=== PATIENT | female | born 1965 | race Caucasian/White ===

== ENCOUNTER 2021-02-21 10:14 | Emergency (ER) | payer MEDICARE, BC ==
[~2021-02-21] VITALS: Ht 177.8 cm; Wt 59.1 kg
[2021-02-21 10:43] VITALS: TEMP 97.9
[2021-02-21 11:16] LABS: COLLECTION METHOD CLEAN CATCH
[2021-02-21 11:21] LABS: BASO # 0.1 K/mm3 (0.0-0.2); EOS # 0.1 K/mm3 (0.0-0.7); EOS % 1.1 % (0.0-4.0); GRAN # 4.8 K/mm3 (1.4-6.5); GRAN % 57.8 % (42.2-75.2); HEMOGLOBIN 15.9 g/dl (12.5-16.0); LYMPH # 2.8 K/mm3 (1.2-3.4); LYMPH % 33.9 % (20.0-51.0); MEAN CELL VOLUME 85 fl (80.0-100.0); MEAN CORPUSCULAR HEMOGLOBIN 29 pg (27-31); MEAN CORPUSCULAR HGB CONC 34 g/dl (33.0-37.0); MEAN PLATELET VOLUME 9.8 fl (7.4-10.4); MONO # 0.5 K/mm3 (0.1-0.6); PLATELET COUNT 318 K/mm3 (130-400); RED BLOOD COUNT 5.51 M/mm3 (4.10-5.30); REDCELL DISTRIBUTION WIDTH-CV 12.8 % (11.5-14.5)
[2021-02-21 11:24] LABS: MUCOUS Present (NOT PRESENT); PH 5 (5-8); SQUAMOUS EPITHELIAL 0-2 /hpf (0-10); URINE APPEARANCE Clear (CLEAR/HAZY); URINE BACTERIA None Seen /hpf (NONE SEEN); URINE BILIRUBIN Negative (NEGATIVE); URINE BLOOD 1+ (NEGATIVE); URINE COLOR Yellow (YELLOW); URINE GLUCOSE Negative (NEGATIVE); URINE KETONE Negative (NEGATIVE); URINE LEUKOCYTE ESTERASE Negative (NEGATIVE); URINE NITRATE Negative (NEGATIVE); URINE PROTEIN(semi-quant) Negative (NEGATIVE); URINE RBC 0-2 /hpf (0-2); URINE UROBILINOGEN Negative (NEGATIVE)
[2021-02-21 11:39] LABS: ALANINE AMINOTRANSFERASE 12 U/L (0-55); ALKALINE PHOSPHATASE 69 U/L (40-150); ANION GAP 11 mmol/L (7-16); AST,SGOT 18 U/L (5-34); BILIRUBIN,TOTAL 0.4 mg/dL (0.2-1.2); BLOOD UREA NITROGEN 9 mg/dL (10-20); CARBON DIOXIDE 22 mmol/L (22-29); CHLORIDE 107 mmol/L (98-107); CREATININE, serum 0.78 mg/dL (0.57-1.11); GLUCOSE 91 mg/dL (70-99); LIPASE 59 U/L (8-78); POTASSIUM 4.1 mmol/L (3.5-4.5); SODIUM 140 mmol/L (136-145); TOTAL PROTEIN 6.4 gm/dL (6.2-8.1)
[2021-02-21 11:45] LABS: TROPONIN-I < 0.010 ng/mL (0.00-0.033)
[2021-02-21] MEDS ORDERED: NORCO 325 MG-51 TAB PO (12:03)
[2021-02-21 12:10] VITALS: BP 123/73; PULSE 65
== END 2021-02-21 12:13 | disposition home or self-care (01) ==
LOC: COL.ER 10:14
PROVIDERS: Emergency Medicine
DX: R10.11 Right upper quadrant pain (principal); G89.29 Other chronic pain
CPT/HCPCS: J3010; J7030

== ENCOUNTER 2021-02-25 16:56 | Emergency (ER) | payer MEDICARE, BC ==
[~2021-02-25] VITALS: Ht 177.8 cm; Wt 59.1 kg
[~2021-02-25 16:56] MED LIST: NORCO 325 MG-51 TAB PO
[2021-02-25 17:35] VITALS: TEMP 98
[2021-02-25 19:35] LABS: BASO # 0.1 K/mm3 (0.0-0.2); BASO % 0.6 % (0.0-2.0); EOS # 0.1 K/mm3 (0.0-0.7); EOS % 0.9 % (0.0-4.0); GRAN # 7.9 K/mm3 (1.4-6.5); GRAN % 66.4 % (42.2-75.2); HEMATOCRIT 44.6 % (37.0-47.0); HEMOGLOBIN 15.1 g/dl (12.5-16.0); LYMPH # 3.1 K/mm3 (1.2-3.4); LYMPH % 26.3 % (20.0-51.0); MEAN CELL VOLUME 85 fl (80.0-100.0); MEAN CORPUSCULAR HEMOGLOBIN 29 pg (27-31); MEAN CORPUSCULAR HGB CONC 34 g/dl (33.0-37.0); MEAN PLATELET VOLUME 9.6 fl (7.4-10.4); MONO # 0.7 K/mm3 (0.1-0.6); MONO % 5.5 % (1.7-9.3); PLATELET COUNT 315 K/mm3 (130-400); RED BLOOD COUNT 5.24 M/mm3 (4.10-5.30); REDCELL DISTRIBUTION WIDTH-CV 12.6 % (11.5-14.5)
[2021-02-25 20:06] LABS: BILIRUBIN,TOTAL 0.6 mg/dL (0.2-1.2); CALCIUM 9.4 mg/dL (8.4-10.2); POTASSIUM 3.9 mmol/L (3.5-4.5); TOTAL PROTEIN 6.7 gm/dL (6.2-8.1)
[2021-02-25 20:30] LABS: CREATININE, serum 0.77 mg/dL (0.57-1.11)
[2021-02-25 20:46] VITALS: BP 124/78; PULSE 76
== END 2021-02-25 20:46 | disposition home or self-care (01) ==
LOC: COL.ER 16:56
PROVIDERS: Physician Assistant
DX: K80.50 Calculus of bile duct without cholangitis or cholecystitis without obstruction (principal); F17.200 Nicotine dependence, unspecified, uncomplicated

== ENCOUNTER 2021-03-05 07:34 | Day surgery (SDC) | payer MEDICARE, BC ==
[~2021-03-05] VITALS: Ht 177.8 cm; Wt 59.3 kg
[2021-03-05] MEDS ORDERED: DULCOLAX STOOL100 MG PO (07:57)
[2021-03-05 09:41] VITALS: BP 110/67; PULSE 72; TEMP 97.7
[2021-03-05] MEDS ORDERED: MOTRIN 600600 MG/TAB PO (11:21)
[2021-03-05] MEDS ORDERED: NORCO 325 MG-51 TAB PO (11:22)
[2021-03-05] MEDS ORDERED: ZOFRAN ODT4 MG PO (11:22)
[2021-03-05 11:50] VITALS: BP 125/76; PULSE 77; TEMP 97.6
--- NOTE | 2021-03-05 11:50 | NUR ---
Patient arrived back into [facility] from PACU. Report recieved from KEY Ybarra. at bedside. Patient reporting just wanting to rest.
[2021-03-05 12:05] VITALS: BP 131/75; PULSE 82
[2021-03-05 12:20] VITALS: BP 117/73; PULSE 80
--- NOTE | 2021-03-05 12:20 | NUR ---
Patient alert and awake. Requesting water and nani crackers. Stating she is having some pain to incisional areas. PRN pain medications given per MAR for pain. Patient at bedside. Patient reports pain and no nausea at this time.
[2021-03-05 12:35] VITALS: BP 119/71; PULSE 82
--- NOTE | 2021-03-05 12:40 | NUR ---
Patient tolerated food and drink well. States pain is tolerable. Denies nausea. At this time patient meets discharge criteria. Went through discharge instructions with patient and . Questions answered. Patient and verbalized understanding to eduction. Patient up to use restroom with assistance of . Instructed to use call light in room or restroom if needed.
--- NOTE | 2021-03-05 12:50 | NUR ---
Patient voided successful, got dressed with assistance of . Patient was then escorted to patient entrance via wheelchair when she got into personal vehicle and left in the care of her , Eleuterio.
== END 2021-03-05 12:50 | disposition home or self-care (01) ==
LOC: SDCO 07:34
DX: K81.1 Chronic cholecystitis (principal); F17.210 Nicotine dependence, cigarettes, uncomplicated
CPT/HCPCS: J0690; J1100; J1885; J2250; J2405; J2704; J3010; J7120; Q9967

== ENCOUNTER → 2021-11-06 | Outpatient (CLI) | payer MEDICARE, BC ==
[~2021-11-06] MED LIST changes: +DULCOLAX STOOL100 MG PO; +MOTRIN 600600 MG/TAB PO; +ZOFRAN ODT4 MG PO
== END ==
LOC: COL.RAD 07:08
DX: R22.9 Localized swelling, mass and lump, unspecified (principal)

== ENCOUNTER → 2022-04-18 | Outpatient (CLI) | payer MEDICARE, BC | LOC: COL.RAD 09:38 | DX: R22.2 Localized swelling, mass and lump, trunk (principal) ==

== ENCOUNTER 2022-05-13 14:15 | Outpatient (RCR) | payer MEDICARE, BC | END 2022-05-17 | disposition home or self-care (01) | LOC: PT.GENESIS | DX: M54.50 Low back pain, unspecified (principal); R29.898 Other symptoms and signs involving the musculoskeletal system; H81.03 Meniere's disease, bilateral; R22.42 Localized swelling, mass and lump, left lower limb; F17.200 Nicotine dependence, unspecified, uncomplicated ==

== ENCOUNTER 2022-06-10 09:00 | Outpatient (RCR) | payer MEDICARE, BC | END 2022-06-16 | disposition home or self-care (01) | LOC: PT.GENESIS | DX: R29.898 Other symptoms and signs involving the musculoskeletal system (principal) ==

== ENCOUNTER 2022-10-08 08:30 | Outpatient (RCR) | payer MEDICARE, BC | END 2022-10-17 | disposition home or self-care (01) | LOC: PT.GENESIS | DX: R29.898 Other symptoms and signs involving the musculoskeletal system (principal); M46.1 Sacroiliitis, not elsewhere classified; M54.50 Low back pain, unspecified ==

== ENCOUNTER 2023-02-04 09:00 | Outpatient (RCR) | payer MEDICARE, BC | END 2023-02-16 | disposition home or self-care (01) | LOC: PT.GENESIS | DX: M46.1 Sacroiliitis, not elsewhere classified (principal); R53.1 Weakness; R29.898 Other symptoms and signs involving the musculoskeletal system ==

== ENCOUNTER 2023-03-18 09:00 | Outpatient (RCR) | payer MEDICARE, BC | END 2023-03-19 | disposition home or self-care (01) | LOC: PT.GENESIS | DX: R29.898 Other symptoms and signs involving the musculoskeletal system (principal); M54.50 Low back pain, unspecified ==

== ENCOUNTER 2023-04-08 09:30 | Outpatient (RCR) | payer MEDICARE, BC | END 2023-04-17 | disposition home or self-care (01) | LOC: PT.GENESIS | DX: M54.50 Low back pain, unspecified (principal); R29.898 Other symptoms and signs involving the musculoskeletal system ==

== ENCOUNTER 2023-12-30 08:45 | Outpatient (RCR) | payer MEDICARE, BC | END 2024-01-17 | disposition home or self-care (01) | LOC: PT.GENESIS | DX: G57.03 Lesion of sciatic nerve, bilateral lower limbs (principal) ==